=== PATIENT | female | born 1985 | race Caucasian/White ===

== ENCOUNTER 2017-04-08 17:45 | Emergency (ER) | payer MEDICAID ==
[2017-04-08 17:46] VITALS: BMI 21.6
--- NOTE | 2017-04-08 18:27 | ED PDOC ---
HPI: Psych/Substance Abuse Time Seen by Provider: 04/08/17 17:47 Chief Complaint (Nursing): Medical Clearance Chief Complaint (Provider): Medical Clearance History Per: Patient History/Exam Limitations: no limitations Onset/Duration Of Symptoms: Hrs Current Symptoms Are (Timing): Still Present Additional Complaint(s): 31 y/o female with a past medical history of bipolar disorder, depression, and anxiety who presents to the emergency department via [facility] for psychiatric clearance for incarceration. Patient states she does not feel well and has anxiety. As per history from police, patient is intoxicated with bizarre behavior. Admits to bipolar disorder and is compliant with medications. Past Medical History Reviewed: Historical Data, Nursing Documentation, Vital Signs Vital Signs: Last Vital Signs Temp 99.3 F 04/08/17 17:47 Pulse 60 04/08/17 17:47 Resp 20 04/08/17 17:47 BP 139/98 H 04/08/17 17:47 Pulse Ox 98 04/08/17 17:47 - Medical History PMH: Anxiety, Bipolar Disorder, Depression - Family History Family History: States: No Known Family Hx - Immunization History Hx Tetanus Toxoid Vaccination: Yes Hx Influenza Vaccination: No Hx Pneumococcal Vaccination: No - Home Medications Home Medications: Ambulatory Orders Medication Instructions Recorded Ibuprofen [Motrin] 600 mg PO Q6 PRN #20 tab 03/11/17 - Allergies Allergies/Adverse Reactions: Allergies Allergy/AdvReac Type Severity Reaction Status Date / Time No Known Allergies Allergy Verified 03/11/17 13:14 Review of Systems ROS Statement: Except As Marked, All Systems Reviewed And Found Negative Psych: Positive for: Anxiety Physical Exam - Reviewed Nursing Documentation Reviewed: Yes Vital Signs Reviewed: Yes - Physical Exam Appears: Positive for: Non-toxic, No Acute Distress Head Exam: Positive for: ATRAUMATIC, NORMAL INSPECTION, NORMOCEPHALIC Skin: Positive for: Normal Color, Warm, Dry Neck: Positive for: Normal, Supple Cardiovascular/Chest: Positive for: Regular Rate, Rhythm. Negative for: Murmur Respiratory: Positive for: Normal Breath Sounds. Negative for: Accessory Muscle Use, Respiratory Distress Gastrointestinal/Abdominal: Positive for: Normal Exam, Soft. Negative for: Tenderness Back: Positive for: Normal Inspection. Negative for: L CVA Tenderness, R CVA Tenderness Extremity: Positive for: Normal ROM. Negative for: Pedal Edema Neurologic/Psych: Positive for: Alert, Oriented (x3) - ECG O2 Sat by Pulse Oximetry: 98 (RA) Pulse Ox Interpretation: Normal Medical Decision Making Medical Decision Making: Time: 18:16 Initial impression: Medical Clearance Initial plan: --Alcohol Serum --Beta-HCG, Quantitative --CMP --Drug Screen, Urine --Urine PREG --CBC w/ diff --Urinalysis --Crisis Evaluation As Ordered --Reevaluation Time: 18:44 Pt screaming and agitated, trying to remove handcuffs and flip bed. Bloodwork unable to be obtained at this time. Pt medicated to relieve hr of her agitation --Ativan 2 mg IM 29:25-- Pt no longer under arrest. handcuffs removed. Pt released to care of hr mother who presented to ED according to police. Academic Affairs Manager requesting to take Pt home at this time. Pt discharged into care of her mother Pt denies nay HI or SI. Pt states she is no longer anxious, only wants to go home. Scribe Attestation: Documented by Clementina Bee, acting as a scribe for Keyana Menjivar PA-C Provider Scribe Attestation: All medical record entries made by the Scribe were at my direction and personally dictated by me. I have reviewed the chart and agree that the record accurately reflects my personal performance of the history, physical exam, medical decision making, and the department course for this patient. I have also personally directed, reviewed, and agree with the discharge instructions and disposition. Disposition - Clinical Impression Clinical Impression: Encounter for medical screening examination, Alcohol abuse - Patient ED Disposition Is Patient to be Admitted: No - Disposition Disposition: Routine/Home Disposition Time: 20:21 Condition: STABLE Instructions: Alcohol Intoxication (ED) Forms: [employer] (Filipino) - POA Present On Arrival: None
[2017-04-08 19:58] VITALS: BP 122/80; PULSE 78; RESP 18; TEMP 98.6
[2017-04-08 20:20] VITALS: O2SAT 98
== END 2017-04-08 20:30 | disposition home or self-care (01) ==
LOC: H.ER 17:45
DX: F10.10 Alcohol abuse, uncomplicated (principal); F31.9 Bipolar disorder, unspecified; F41.9 Anxiety disorder, unspecified
CPT/HCPCS: 96372; 99281; J2060